=== PATIENT | female | born 1935 | race Caucasian/White ===

== ENCOUNTER → 2017-06-30 | Outpatient (CLI) | payer MEDICARE | END | disposition home or self-care (01) | LOC: PCVCCLINIC 10:50 | PROVIDERS: ATTEND Internal Medicine | DX: I10 Essential (primary) hypertension (principal); I08.0 Rheumatic disorders of both mitral and aortic valves; E78.5 Hyperlipidemia, unspecified; I48.0 Paroxysmal atrial fibrillation; E03.9 Hypothyroidism, unspecified; K21.9 Gastro-esophageal reflux disease without esophagitis; R94.31 Abnormal electrocardiogram [ECG] [EKG]; Z79.82 Long term (current) use of aspirin; Z79.899 Other long term (current) drug therapy | CPT/HCPCS: 36415; 80061; 93005; G0463 ==

== ENCOUNTER → 2017-12-29 | Outpatient (CLI) | payer MEDICARE | END | disposition home or self-care (01) | LOC: PCVCCLINIC 11:37 | DX: I48.1 Persistent atrial fibrillation (principal); I10 Essential (primary) hypertension; I35.1 Nonrheumatic aortic (valve) insufficiency; I34.0 Nonrheumatic mitral (valve) insufficiency; E78.5 Hyperlipidemia, unspecified; E03.9 Hypothyroidism, unspecified; K21.9 Gastro-esophageal reflux disease without esophagitis; I48.0 Paroxysmal atrial fibrillation; R94.31 Abnormal electrocardiogram [ECG] [EKG]; Z79.899 Other long term (current) drug therapy | CPT/HCPCS: 80061; 93005; G0463 ==

== ENCOUNTER → 2018-07-01 | Outpatient (CLI) | payer MEDICARE | END | disposition home or self-care (01) | LOC: PCVCCLINIC 15:00 | PROVIDERS: ATTEND Internal Medicine | DX: I48.2 Chronic atrial fibrillation (principal); I10 Essential (primary) hypertension; I34.0 Nonrheumatic mitral (valve) insufficiency; E78.5 Hyperlipidemia, unspecified; E03.9 Hypothyroidism, unspecified; K21.9 Gastro-esophageal reflux disease without esophagitis | CPT/HCPCS: 80061; 93005; G0463 ==

== ENCOUNTER → 2019-01-06 | Outpatient (CLI) | payer OTHER | END | disposition home or self-care (01) | LOC: PCVCCLINIC 16:00 | PROVIDERS: ATTEND Internal Medicine | DX: I48.2 Chronic atrial fibrillation (principal); I10 Essential (primary) hypertension; I34.0 Nonrheumatic mitral (valve) insufficiency; E78.5 Hyperlipidemia, unspecified; E03.9 Hypothyroidism, unspecified; K21.9 Gastro-esophageal reflux disease without esophagitis; I48.1 Persistent atrial fibrillation | CPT/HCPCS: 36415; 80061; 93005; G0463 ==

== ENCOUNTER → 2019-07-05 | Outpatient (CLI) | payer OTHER ==
--- NOTE | 2019-07-05 15:18 | PCVCIMAG ---
APPROVED REPORT Study performed: 07/05/2019 12:58:52 EXAM: Comprehensive 2D, Doppler, and color-flow Echocardiogram Patient Location: Echo lab Room #: 2Status: routine BSA: 1.54 HR: 65 bpmBP: 136/64 mmHg Rhythm: Atrial Fibrillation Other Information Study Quality: Adequate Risk Factors: Cardiac Risk Factors: HTN, Hyperlipidemia Indications Atrial Fibrillation Mitral Regurgitation 2D Dimensions IVSd: 10.84 (7-11mm)LVOT Diam: 18.00 (18-24mm) LVDd: 45.54 mm PWd: 10.23 (7-11mm)Ascending Ao: 33.12 (22-36mm) LVDs: 28.81 (25-40mm) Left Atrium: 44.09 (27-40mm) Aortic Root: 27.19 mm LV Single Plane 4CH: 63.29 % LV Single Plane 2CH: 56.06 % Biplane EF: 59.4 % Volumes Left Atrial Volume (Systole) Single Plane 4CH: 76.49 mLSingle Plane 2CH: 63.04 mL LA ESV Index: 46.00 mL/m2 Aortic Valve LVOT Max P.55 mmHg LVOT Max V: 1.07 m/s AI Vmax: 4.28 m/s AI [place]: 2.64 m/s2 AI PHT: 469.13 ms Pulmonary Valve PV Peak Tobias.: 0.88 m/sPV Peak Gr.: 3.10 mmHg Tricuspid Valve TR Peak Tobias.: 2.78 m/sRAP Estimate: 7.00 mmHg TR Peak Gr.: 30.99 mmHg PA Pressure: 38.00 mmHg Left Ventricle The left ventricle is normal size. There is normal LV segmental wall motion. There is normal left ventricular wall thickness. Left ventricular systolic function is normal. The left ventricular ejection fraction is within the normal range. LVEF is 60-65%. This study is not technically sufficient to allow evaluation of the LV diastolic function due to atrial fibrillation. Right Ventricle The right ventricle is normal size. The right ventricular systolic function is normal. Atria Left atrium is moderately dilated. Right atrium is dilated. Aortic Valve The aortic valve is mildly calcified Moderate aortic regurgitation. There is no aortic valvular stenosis. Mitral Valve Mild mitral annular calcification Moderate mitral regurgitation. No evidence of mitral valve stenosis. Tricuspid Valve The tricuspid valve is normal in structure. Moderate to severe tricuspid regurgitation. Pulmonary artery pressure is 38 mmHg. Pulmonic Valve The pulmonary valve is normal in structure. Mild pulmonic regurgitation. Great Vessels The aortic root is normal in size. The ascending aorta is normal in size. IVC is normal in size and collapses >50% with inspiration. Pericardium There is no pericardial effusion. <Conclusion> Left ventricular systolic function is normal. There is normal LV segmental wall motion. LVEF is 60-65%. Both atria are moderately dilated. The aortic valve is mildly calcified. Moderate aortic regurgitation, no stenosis Mild mitral annular calcification. Moderate mitral regurgitation. Moderate to severe tricuspid regurgitation. Pulmonary artery pressure of 38 mmHg. There is no pericardial effusion.
== END | disposition home or self-care (01) ==
LOC: PCVCIMAG 12:46
PROVIDERS: ATTEND Internal Medicine
DX: I08.8 Other rheumatic multiple valve diseases (principal); I48.21 Permanent atrial fibrillation; I10 Essential (primary) hypertension; E78.5 Hyperlipidemia, unspecified; E03.9 Hypothyroidism, unspecified; K21.9 Gastro-esophageal reflux disease without esophagitis; I48.0 Paroxysmal atrial fibrillation; Z79.899 Other long term (current) drug therapy
CPT/HCPCS: 93306